=== PATIENT | female | born 1985 | race Caucasian/White ===

== ENCOUNTER 2016-11-19 05:28 | Inpatient (IN) | payer SELFPAY ==
[~2016-11-19] VITALS: Ht 162.6 cm; Wt 69.1 kg
[~2016-11-19 05:28] MED LIST: ASPI81TA18 PO; IBUP-1222 PO; MELA5CAP PO; PREN1TAB60 PO
[2016-11-19] MEDS ORDERED: OXYTOCIN 30U/ 0.9% NaCL 500ML 500 ML IV ONE (05:57)
[2016-11-19] MEDS ORDERED: METOCLOPRAMIDE 5 MG/ML, 2ML IVPush PRN (06:00)
[2016-11-19] MEDS ORDERED: ALUMINUM/MAG/SIMETHICONE 30 ML UDC PO PRN (06:00)
[2016-11-19] MEDS ORDERED: TERBUTALINE 1 MG/ML, 1ML IVPush PRN ×2 (06:00)
[2016-11-19] MEDS ORDERED: MISOPROSTOL 25 MCG TABLET VG PRN (06:00)
[2016-11-19] MEDS ORDERED: ONDANSETRON 2MG/ML, 2ML IVPush PRN (06:00)
[2016-11-19] MEDS ORDERED: SODIUM CITRATE/CITRIC ACID 30 ML UDC PO PRN (06:00)
[2016-11-19] MEDS ORDERED: FENTANYL PF 100 MCG/2ML IVPush PRN (06:00)
[2016-11-19] MEDS ORDERED: CALCIUM CARBONATE 500 MG TAB.CHEW PO PRN (06:00)
[2016-11-19] MEDS ORDERED: FENTANYL PF 100 MCG/2ML IV PRN (06:00)
[2016-11-19] MEDS ORDERED: MISOPROSTOL 25 MCG TABLET ONE (06:03)
[2016-11-19] MEDS: LACTATED RINGERS 1,000 ML IV SCH ×4 (07:38→19:39)
[2016-11-19] MEDS ORDERED: FENTANYL/BUPIV./NS/PF 250 ML EPIDCONT ONE (09:22)
[2016-11-19] MEDS ORDERED: FENTANYL PF 100 MCG/2ML ONE (09:22)
[2016-11-19] MEDS ORDERED: BUPIVACAINE 0.25% ONE (09:22)
[2016-11-19] MEDS ORDERED: CEFAZOLIN 1,000 MG ONE (09:30)
[2016-11-19] MEDS ORDERED: PHENYLEPHRINE 10 MG/ML ONE (09:30)
[2016-11-19] MEDS ORDERED: EPHEDRINE 50 MG/ML, 1ML ONE (09:30)
[2016-11-19] MEDS ORDERED: PROPOFOL 10 MG/ML, 20ML ONE (09:30)
[2016-11-19] MEDS ORDERED: NEWBORN KIT ONE (09:56)
[2016-11-19] MEDS ORDERED: OXYTOCIN 30U/ 0.9% NaCL 500ML 500 ML IV PRN (10:19)
[2016-11-19] MEDS ORDERED: FENTANYL/BUPIV./NS/PF 250 ML EPIDCONT SCH (10:21)
[2016-11-19] MEDS ORDERED: OXYTOCIN 30U/ 0.9% NaCL 500ML 500 ML ONE (10:25)
[2016-11-19] MEDS ORDERED: ONDANSETRON 2MG/ML, 2ML ONE (10:27)
[2016-11-19] MEDS ORDERED: LACTATED RINGERS 1,000 ML IVBOLUS PRN (10:30)
[2016-11-19] MEDS ORDERED: AMPICILLIN 2 GM in SODIUM CHLORIDE 0.9% 100 ML IVPB STA (17:28)
[2016-11-19] MEDS: D5%-LACTATED RINGERS 1,000 ML IV SCH (20:26)
[2016-11-19] MEDS: AMPICILLIN 1 GM in SODIUM CHLORIDE 0.9% 50 ML IVPB SCH (22:19)
[2016-11-20] MEDS ORDERED: MISOPROSTOL 200 MCG TABLET ONE (00:44)
[2016-11-20] MEDS ORDERED: METHYLERGONOVINE 0.2 MG/ML IM ONE ×2 (00:45→12:00)
[2016-11-20] MEDS ORDERED: OXYTOCIN 30U/ 0.9% NaCL 500ML 500 ML ONE ×2 (00:53→05:02)
[2016-11-20] MEDS: LACTATED RINGERS 1,000 ML IV SCH ×3 (02:21→06:07)
[2016-11-20] MEDS: AMPICILLIN 1 GM in SODIUM CHLORIDE 0.9% 50 ML IVPB SCH ×5 (02:36→17:30)
[2016-11-20] MEDS: OXYTOCIN 30U/ 0.9% NaCL 500ML 500 ML IV SCH ×3 (02:40→22:40)
[2016-11-20] MEDS ORDERED: OXYcodone/APAP 5/325MG TABLET PO PRN ×2 (03:00)
[2016-11-20] MEDS ORDERED: ONDANSETRON 2MG/ML, 2ML IV PRN (03:00)
[2016-11-20] MEDS ORDERED: MISOPROSTOL 200 MCG TABLET PR PRN (03:00)
[2016-11-20] MEDS ORDERED: CARBOPROST TROMETHAMINE 250 MCG/ML, 1ML IM PRN (03:00)
[2016-11-20] MEDS ORDERED: METOCLOPRAMIDE 5 MG/ML, 2ML IV PRN (03:00)
[2016-11-20] MEDS ORDERED: METHYLERGONOVINE 0.2 MG/ML IM PRN (03:00)
[2016-11-20] MEDS ORDERED: ACETAMINOPHEN 325 MG TABLET PO PRN (03:00)
[2016-11-20] MEDS ORDERED: FENTANYL PF 100 MCG/2ML ONE (04:34)
[2016-11-20] MEDS ORDERED: BUPIVACAINE 0.25% ONE (04:34)
[2016-11-20] MEDS ORDERED: morphine SULFATE/PF 0.5 MG/ML, 10ML ONE (05:17)
[2016-11-20] MEDS: D5%-LACTATED RINGERS 1,000 ML IV SCH (05:57)
[2016-11-20] MEDS: PRENATAL VIT/IRON/FA 1 EACH TABLET PO SCH (09:00)
[2016-11-20] MEDS ORDERED: CEFAZOLIN PMX 2GM/100ML 100 ML IV ONE ×2 (09:30→13:00)
[2016-11-20 09:45] VITALS: BP 112/71
[2016-11-20] MEDS ORDERED: CEFAZOLIN 1,000 MG IV ONE (13:00)
[2016-11-20] MEDS ORDERED: CEFAZOLIN PMX 2GM/50ML 50 ML IV ONE (13:00)
[2016-11-20] MEDS: MEPERIDINE 50 MG TABLET PO PRN ×2 (13:25→17:46)
[2016-11-20 16:25] VITALS: BP 109/71
[2016-11-20 19:45] VITALS: BP 102/64
[2016-11-21 01:25] VITALS: BP 90/68
[2016-11-21] MEDS: IBUPROFEN 600 MG TABLET PO PRN ×4 (01:32→21:00)
[2016-11-21] MEDS: MEPERIDINE 50 MG TABLET PO PRN ×3 (06:29→19:29)
[2016-11-21] MEDS: DOCUSATE 100 MG CAPSULE PO PRN ×2 (07:52→21:00)
[2016-11-21] MEDS: PRENATAL VIT/IRON/FA 1 EACH TABLET PO SCH (07:52)
[2016-11-21 08:06] VITALS: BP 91/59
[2016-11-21] MEDS: OXYTOCIN 30U/ 0.9% NaCL 500ML 500 ML IV SCH (08:40)
[2016-11-21] MEDS: AMOXICILLIN/CLAV 875-125MG TABLET PO SCH ×2 (09:49→21:00)
[2016-11-22 03:00] VITALS: BP 99/66
[2016-11-22 08:20] VITALS: BP 103/71
[2016-11-22] MEDS: AMOXICILLIN/CLAV 875-125MG TABLET PO SCH (08:29)
[2016-11-22] MEDS: DOCUSATE 100 MG CAPSULE PO PRN (08:29)
[2016-11-22] MEDS: PRENATAL VIT/IRON/FA 1 EACH TABLET PO SCH (08:29)
[2016-11-22] MEDS: IBUPROFEN 600 MG TABLET PO PRN (08:29)
[2016-11-22] MEDS ORDERED: DOCU-30 PO (10:11)
[2016-11-22] MEDS ORDERED: AMOX1TAB64 PO (10:12)
== END 2016-11-22 10:55 | disposition home or self-care (01) | DRG 767 ==
LOC: LDOP 05:28 → LDIP 05:59 → 2NW 11-20 09:32
PROVIDERS: ADMIT Obstetrics & Gynecology; ATTEND Obstetrics & Gynecology
PROC: 10E0XZZ Delivery of Products of Conception, External Approach (ICD-10-PCS; principal; 2016-11-20)
PROC: 10D17ZZ Extraction of Products of Conception, Retained, Via Natural or Artificial Opening (ICD-10-PCS; 2016-11-20)
PROC: 0W8NXZZ Division of Female Perineum, External Approach (ICD-10-PCS; 2016-11-20)
PROC: 3E0P7GC Introduction of Other Therapeutic Substance into Female Reproductive, Via Natural or Artificial Opening (ICD-10-PCS; 2016-11-20)
PROC: 3E0R3CZ (ICD-10-PCS; 2016-11-20)
PROC: 00HU33Z Insertion of Infusion Device into Spinal Canal, Percutaneous Approach (ICD-10-PCS; 2016-11-20)
DX: O42.92 Full-term premature rupture of membranes, unspecified as to length of time between rupture and onset of labor (principal); O72.0 Third-stage hemorrhage; O69.1XX0 Labor and delivery complicated by cord around neck, with compression, not applicable or unspecified; O62.2 Other uterine inertia; O90.81 Anemia of the puerperium; D64.9 Anemia, unspecified; Z37.0 Single live birth; Z3A.39 39 weeks gestation of pregnancy
CPT/HCPCS: 36415; 85025; 86850; 86900; J0290; J0690; J2274; J2405; J2704; J3490; J2210; J2370; J2590; J3010; J7120; J7121